=== PATIENT | female | born 1995 | race Caucasian/White ===

== ENCOUNTER 2025-09-18 09:32 | Emergency (ER) | payer OTHER, SELFPAY ==
[2025-09-18 09:35] VITALS: BP 140/89
[2025-09-18 10:08] LABS: Hematocrit 40.5 % (37.0-47.0); Hemoglobin 14.1 g/dL (12.0-16.0); Mean Corp Hgb Conc. 34.8 g/dL (33.0-37.0); Mean Corpuscular Volume 90.8 fL (81.0-99.0); Nucleated Red Blood Cells % 0 %; Platelet Count 309 10^3/uL (130-400); Red Cell Dist. Width 12.2 % (11.5-14.5)
[2025-09-18 10:19] LABS: HCG, Serum Qualitative Screen Negative
[2025-09-18 10:29] LABS: ALT (SGPT) 65 U/L (0-35); AST (SGOT) 41 U/L (14-36); Albumin 4.5 g/dl (3.5-5.0); Alkaline Phosphatase 63 U/L (38-126); Blood Urea Nitrogen 14 mg/dl (7-17); Calcium 9.1 mg/dl (8.4-10.2); Carbon Dioxide 20 mmol/L (22-30); Chloride 106 mmol/L (98-107); Glucose 100 mg/dl (70-99); Potassium 3.8 mmol/L (3.5-5.1); Sodium 137 mmol/L (135-145); Total Protein 7.3 g/dl (6.3-8.2); eGFR > 60.00
[2025-09-18 11:55] VITALS: BMI 39.5
--- NOTE | 2025-09-18 12:05 | ED.GENMED ---
History of Present Illness
General
Chief Complaint: Vaginal Bleeding
Source: patient
Time Seen by Provider: 09/18/25 11:44
History of Present Illness
History of Present Illness:
30-year-old female with no significant past medical history presents to the ER at the request of [place] ROOM SERVICE WAITER/WAITRESS office for evaluation of heavy menstrual bleeding that began on Wednesday, a few days prior to this event experiencing light
spotting. Patient notes that her menstrual's are very irregular, gets approximately 4/year but when she does they are very heavy often times causing her to bleed through both tampon and pad. Patient endorses some lower abdominal cramping. She
denies any lightheadedness, dizziness, shortness of breath, chest pain or any other concerns. She is not on any type of oral contraceptive. No other concerns presently.
Past History
Past History
ED Past Medical History: None
ED Past Surgical History: None
Social History
Tobacco: Non-smoker
Alcohol: Occasional
Drug: None
Personal: Single
Living: with family
Review of Systems
Review of Systems
All Other Systems: ROS reviewed and negative except as documented in HPI and ROS
Phy Exam
Physical Exam
Physical Exam:
GENERAL: Alert , in no apparent distress
EYE: clear conjunctiva b/l
HEAD: NCAT
ENT: o/p clr, mmm.
CARDIAC: Regular rate and rhythm .
LUNGS: Clear breath sounds bilaterally, no acute respiratory distress, no wheezes/rales/rhonchi
ABDOMEN: Soft, without focal tenderness, no r/g, no cvat
NEUROLOGICAL: Alert and oriented
SKIN: Warm and dry, skin intact.
MUSCULOSKELETAL: well perfused.
PSYCH: Normal and appropriate interaction.
Scores
Heart Failure Risk
Heart Failure Risk Score: Not Applicable
Heart Score for Chest Pain Patients
STEMI patient?: Not applicable
Withdrawal Assessment of Alcohol
Withdrawal Assessment Completed?: Not applicable
Course
Orders/Labs/Results
Orders:
Orders
09/18/25 09:44
Test Result ONCE
09/18/25 09:51
Complete Blood Count/With Diff Urgent
Comprehensive Metabolic Panel Urgent
HCG, Serum Qualitative Screen Urgent
Abnormal Lab Results
09/18/25
09:51
MCH 31.6 H pg
(27.0-31.0)
Eosinophils % 6.5 H %
(0-6)
Carbon Dioxide 20 L mmol/L
(22-30)
Glucose 100 H mg/dl
(70-99)
AST 41 H U/L
(14-36)
ALT 65 H U/L
(0-35)
09/18/25 09:51
09/18/25 09:51
Vital Signs
Initial and Last Documented VS:
Initial Vital Signs
Temp Pulse Resp BP Pulse Ox
98.5 F 95 20 140/89 100
09/18/25 09:35 09/18/25 09:35 09/18/25 09:35 09/18/25 09:35 09/18/25 09:35
Last Documented Vital Signs
Temp Pulse Resp BP Pulse Ox
98.5 F 95 20 140/89 100
09/18/25 09:35 09/18/25 09:35 09/18/25 09:35 09/18/25 09:35 09/18/25 12:06
MDM/Problems Addressed
Differential Diagnosis Includes:
Menorrhagia
Anemia
Uterine leiomyomata
MDM/Problems Addressed:
30-year-old female presenting to the ER for evaluation of menorrhagia, symptoms ongoing for an extended period of time but patient notes that the bleeding has been this way when she does get her menstrual period. No lightheadedness, dizziness, she
is hemodynamically stable. Labs initiated in triage show a hemoglobin greater than 14. At this time I do not think patient needs further emergency workup and can continue her workup as an outpatient with her ROOM SERVICE WAITER/WAITRESS. I did offer patient medication
to get the bleeding under control. We decided on starting Lysteda. I will notify ROOM SERVICE WAITER/WAITRESS to ensure patient has expedited outpatient follow-up. Patient aware of return precautions.
*Pulse Oximetry
SaO2: 100
Oxygen Mode of Delivery: Room air
Patient hypoxic: no
*Critical Care Note
Total Time (30-74mins, 75-104mins- exclusive of procedures): Not Applicable
Patient Management
Discussion with other providers: Equine Science Instructor
Escalation/DeEscalation of care consider admission/obs:
Dr. Albarado notified. Agrees with plan. Patient stable for discharge home. Contact office for follow-up.
ED Attending Note
-
Portions of this chart may have been created with voice recognition software.� Occasional wrong word or��sound alike� substitutions may have occurred due to the inherent limitations of voice recognition software.
Discharge Plan
Departure
Patient Disposition: Home (Routine Discharge)
Date of Disposition: 09/18/25
Time of Disposition: 12:05
Patient with high blood pressure during this ER visit?: Yes
Discharge Problem:
Menorrhagia
Instructions: Heavy Periods (DC)
Prescriptions:
New
tranexamic acid 650 mg tablet
1,300 mg PO BID 5 Days Qty: 20 0RF
Interventions
Interventions:
*Neglect/Abuse Screening Last Done: 09/18/25 09:35
ED-Female Genitourinary Assessment Last Done: 09/18/25 11:55
Discharge Date and Time
Print Language: L[place]
== END 2025-09-18 12:17 | disposition home or self-care (01) ==
LOC: EMR 09:32
PROVIDERS: EMERGENCY PHYSICIAN Emergency Medicine; FAMILY PHYSICIAN Obstetrics & Gynecology
DX: N92.0 Excessive and frequent menstruation with regular cycle (principal)
CPT/HCPCS: 99283; 80053; 84703; 85025